=== PATIENT | male | born 1945 | race Caucasian/White ===

== ENCOUNTER 2017-10-19 10:59 | Day surgery (SDC) | payer MEDICARE, BC ==
[~2017-10-19 10:59] MED LIST: LIDOCAINE HCL 1% MPF SOL ONE; PROPOFOL 500 MG/50 ML EMU IV ONE
[2017-10-19 12:45] VITALS: BP 152/74; PULSE 47; RESP 18; O2SAT 100
== END 2017-10-19 13:15 | disposition home or self-care (01) | DRG 951 ==
LOC: SURG 10:59
PROVIDERS: ATTEND Surgery
DX: Z12.11 Encounter for screening for malignant neoplasm of colon (principal); K57.30 Diverticulosis of large intestine without perforation or abscess without bleeding; Z86.010 Personal history of colon polyps
CPT/HCPCS: J2001; J2704